=== PATIENT | male | born 1945 ===

== ENCOUNTER → 2018-09-15 07:24 | Day surgery (SDC) | payer MEDICARE ==
--- NOTE | 2018-09-14 15:45 | HP ---
HISTORY AND PHYSICAL: DATE OF PLANNED ADMISSION AND SURGERY: 09/15/18 - [facility] HISTORY OF PRESENT ILLNESS: Mr. Dejesus is a 72-year-old white male who is admitted with a bladder calculus for cystoscopy and cystolitholapaxy. Mr. Dejesus's history goes back to 2009 when he was diagnosed with prostate carcinoma and underwent a robotic radical prostatectomy in July 2009. He has done well and his PSA has remained undetectable at 0.0. He had been doing well voiding lenz with no incontinence, no hematuria, and no urinary tract infections. The patient presented to my office last week complaining of increasing urgency, frequency, burning on urination, and voiding in small amounts with a feeling of incomplete bladder emptying. There was no associated flank or abdominal pain. No fever or chills. He denies any past history of renal diseases or calculi. His urinalysis in my office was positive for blood, negative for infection. Urine culture showed no growth. As a workup of the microhematuria, he had bilateral renal ultrasound, which showed mild left hydronephrosis and there was 6-mm calculus in the lower pole calyx of the left kidney. The patient then had an office cystoscopy, which showed normal urethra, and there was an impacted calculus at the bladder neck. The calculus could not be dislodged with the cystoscope to visualize the bladder. With the above findings and history, the patient is admitted for the above procedure. PAST MEDICAL HISTORY AND SYSTEM REVIEW: He is a diabetic, maintained on metformin 500 mg twice a day. He is on omeprazole for GERD. He is hypertensive , on metoprolol and on Diovan 160 mg daily. He takes glucosamine for his arthritis. He takes melatonin as needed for sleep. He denies any cardiac or pulmonary diseases or symptoms. ALLERGIES: He reports being allergic to topical NEOSPORIN. PHYSICAL EXAMINATION GENERAL: He is a pleasant white male who looks his age. VITAL SIGNS: Blood pressure 130/80, pulse of 60. LUNGS: Clear. HEART: Regular and rhythmic, no murmurs. ABDOMEN: Soft. No masses, no tenderness, and no CVA tenderness. EXTREMITIES: Show no edema. IMPRESSION: Obstructive voiding symptoms with an obstructing stone at the bladder neck, status post radical prostatectomy for carcinoma of the prostate with good surgical results. PLAN: Plan is for cystoscopy and cystolitholapaxy. The bladder will be inspected. If there are any abnormalities noted causing the hematuria, it will be pursued. [id number] #: [id number] [facility] SYSTEMJagjit
[~2018-09-15 07:24] MED LIST: Acetaminophen TAB* 325 MG PO PRN; Buffered Lidocaine 1% SYRIN* 1 ML/SYRINGE INTRADERM ONE; Dexamethasone IV* 4 MG/ML 1 ML (4 MG) ONE; DiMENhydriNATE IV* 50 MG/ML VIAL IV PUSH PRN; EPHEDrine (Pressors)* 50 MG/ML VIAL ONE; Ketorolac INJ* 30 MG/ML 1 ML VIAL ONE; Lactated Ringers 1000 ML Bag* 1,000 ML IV SCH; Lidocaine 2% PF * 5 ML VIAL ONE; Metoclopramide IV* 5 MG/ML 2 ML VIAL ONE; Midazolam* 1 MG/ML 2 ML VIAL (2 MG) ONE; Naloxone* 0.4 MG/ML 1 ML VIAL IV PRN; Ondansetron INJ* 2 MG/ML VIAL ONE; Propofol* 10 MG/ML 20 ML BTL ONE; Succinylcholine* 20 MG/ML 10 ML VIAL ONE; cefTRIAXone(*) 2 GM ADDV.VIAL IVPB ONE; fentaNYL* 50 MCG/ML 2 ML VIAL (100 MCG VIAL) IV PRN; fentaNYL* 50 MCG/ML 2 ML VIAL (100 MCG VIAL) ONE; oxyCODONE TAB* 5 MG TAB PO PRN
[2018-09-15 11:05] VITALS: BP 105/52
--- NOTE | 2018-09-15 11:05 | OP ---
DATE OF OPERATION: 09/15/18 [facility] DATE OF : 45 SURGEON: Dr. Hernandez. ANESTHESIOLOGIST: Dr. Allen. ANESTHESIA: General. PRE-OP DIAGNOSIS: Impacted calculus at bladder neck. POST-OP DIAGNOSES: 1. Impacted calculus at bladder neck (1.5 cm). 2. Probable spontaneous passage of left ureteral calculus. OPERATIVE PROCEDURE: 1. Cystoscopy. 2. Cystolitholapaxy and evacuation of bladder stone fragments. 3. Left ureteroscopy. INDICATION FOR PROCEDURE: Mr. Dejesus is a 72-year-old white male who had undergone a radical prostatectomy for prostate carcinoma in 2009. He had very good results with no recurrent disease and no voiding symptoms, and his PSA has remained at 0.0. He presented to my office last week with a new onset of voiding symptoms consisting of urgency, frequency, burning on urination, and decreased urinary stream. There was no history of any acute flank pain or renal colic. Renal ultrasound showed mild left hydronephrosis and a small calculus in the lower pole valdez of the left kidney. The postvoid residual was minimal. The patient then had an office cystoscopy, which showed a calculus that was impacted at the level of the bladder neck. The calculus could not be pushed back inside the bladder lumen. Because of the above history, the patient was brought in for the above procedure. PATHOLOGY: At cystoscopy, the penile and bulbar urethrae looked normal. The membranous urethra was intact. 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 A 1.5- cm calculus that had the gross appearance of a calcium oxalate stone was noted to be impacted at the bladder neck level. Inspection of the bladder wall showed edema of the left trigone and the left orifice consistent with a recent passage of stone from the left ureter. The rest of the bladder wall looked normal. There was moderate degree of trabeculations. No suspicious bladder lesions were seen. The right ureteral orifice was normal. Upon left ureteroscopy, there was dilatation of the whole ureter to the level of the orifice. No other calculi were seen, and no abnormality noted. DESCRIPTION OF PROCEDURE: After successful general anesthesia, the patient was placed in the lithotomy position and was prepped and draped for cystoscopy. Cystoscopy was performed. The findings of the impacted calculus in the bladder neck was noted. The calculus was then pushed inside the bladder lumen. The bladder wall was then carefully inspected and the above findings were noted. Using the stone crushing forceps, the stone was broken into multiple fragments. The bladder was then irrigated and all the fragments were evacuated and sent for stone analysis. The clinical diagnosis was the patient must have passed this stone from his left ureter and that explains the findings of the mild left hydronephrosis on the ultrasound and also the findings of edema of the left trigone and orifice. To rule out any other stones, or ureteral pathology, decision was made to proceed with a left ureteroscopy. A 6.5 semirigid ureteroscope was introduced inside the bladder. A flexible-tip guidewire was introduced through the port of the ureteroscope and was introduced without difficulty inside the left orifice. The ureteroscope was then introduced into the left ureter, and the ureter was inspected all the way to the UPJ level. The ureter was dilated all the way to the orifice. No calculi or other pathology, and no obstruction was noted. The ureteroscope was then removed. It was felt that the patient does not need a stent placement considering the degree of dilation of the ureter. The bladder was emptied and the scope was removed. The patient tolerated the procedure well and left the operating room in good condition. The clinical diagnosis is that the patient must have painlessly passed a calculus from the left ureter and it got stuck at the level of the bladder neck causing his symptoms. The patient will be followed and when seen in the office, he will have a followup renal ultrasound to document the resolution of the left hydronephrosis. [id number] #: [id number]
== END | disposition home or self-care (01) ==
LOC: OR 07:24
PROVIDERS: ATTEND Urology
DX: N21.1 Calculus in urethra (principal); N13.30 Unspecified hydronephrosis; N21.0 Calculus in bladder; Z85.46 Personal history of malignant neoplasm of prostate; E11.9 Type 2 diabetes mellitus without complications; Z79.84 Long term (current) use of oral hypoglycemic drugs; K21.9 Gastro-esophageal reflux disease without esophagitis; I10 Essential (primary) hypertension; M19.90 Unspecified osteoarthritis, unspecified site
CPT/HCPCS: 82365; 88300; J0330; J0696; J1100; J1885; J2250; J2405; J2704; J2765; J3010